=== PATIENT | male | born 1955 | race Two or more races ===

== ENCOUNTER 2021-05-02 11:34 | Outpatient (CLI) | payer OTHER | END 2021-05-02 11:42 | disposition home or self-care (01) | LOC: RAD 11:34 | PROVIDERS: ATTEND General Practice | DX: J44.0 Chronic obstructive pulmonary disease with (acute) lower respiratory infection (principal); M15.8 Other polyosteoarthritis ==

== ENCOUNTER 2021-10-09 08:50 | Outpatient (CLI) | payer OTHER | END 2021-10-09 08:58 | disposition home or self-care (01) | LOC: SONOGRAMA 08:50 | PROVIDERS: ATTEND Urology | DX: N40.1 Benign prostatic hyperplasia with lower urinary tract symptoms (principal) ==

== ENCOUNTER 2025-03-30 11:46 | Outpatient (CLI) | payer OTHER | END 2025-03-30 11:50 | disposition home or self-care (01) | LOC: RAD 11:46 | PROVIDERS: ATTEND General Practice | DX: M15.9 Polyosteoarthritis, unspecified (principal) ==